=== PATIENT | female | born 1975 | race Caucasian/White ===

== ENCOUNTER 2025-09-10 06:43 | Observation (INO) ==
--- NOTE | 2025-08-10 14:30 | PAT Medication Instructions ---
Medication Instructions Date of Service August 10, 2025 Home Medications Medication Instructions Recorded ondansetron HCl 4 mg tablet 4 mg PO Q6H PRN nausea and 07/14/22 vomiting #12 tabs tizanidine 4 mg tablet 4 mg PO BID PRN muscle spasticity 06/20/25 #60 tabs ondansetron HCl 4 mg tablet 4 mg PO Q6H PRN desvenlafaxine succinate 25 mg tablet,extended release 24 hr (Pristiq) 25 mg PO QAM dextroamphetamine-amphetamine 30 mg tablet (Adderall) 30 mg PO UD magnesium glycinate 100 mg (as glycinate) tablet 400 mg PO HS progesterone micronized 100 mg capsule 100 mg PO HS tizanidine 4 mg tablet 4 mg PO BID PRN Blink Tab 1 tab PO DAILY ascorbic acid (vitamin C) 1,000 mg tablet (Vitamin C) 1,000 mg PO DAILY estradiol 0.05 mg/24 hr semiweekly transdermal patch 1 patch transdermal 2XWK gabapentin 300 mg capsule 300 mg PO TID meloxicam 7.5 mg tablet 7.5 - 15 mg PO UD [id number]-[id number] 1 tab PO DAILY ASK your surgeon for instructions meloxicam 7.5 mg tablet 7.5 - 15 mg PO UD ASK your prescriber and surgeon estradiol 0.05 mg/24 hr semiweekly transdermal patch 1 patch transdermal 2XWK progesterone micronized 100 mg capsule 100 mg PO HS STOP taking 2 weeks before surgery (or as soon as possible if surgery is within 2 weeks) Blink Tab 1 tab PO DAILY [id number] 1 tab PO DAILY DO NOT take the morning of surgery dextroamphetamine-amphetamine 30 mg tablet (Adderall) 30 mg PO UD ascorbic acid (vitamin C) 1,000 mg tablet (Vitamin C) 1,000 mg PO DAILY Take morning of surgery With a small sip of water, OTHERWISE NOTHING TO EAT OR DRINK AFTER MIDNIGHT: ondansetron HCl 4 mg tablet 4 mg PO Q6H PRN(if needed) desvenlafaxine succinate 25 mg tablet,extended release 24 hr (Pristiq) 25 mg PO QAM tizanidine 4 mg tablet 4 mg PO BID PRN(if needed) gabapentin 300 mg capsule 300 mg PO TID Take evening before surgery ondansetron HCl 4 mg tablet 4 mg PO Q6H PRN(if needed) magnesium glycinate 100 mg (as glycinate) tablet 400 mg PO HS tizanidine 4 mg tablet 4 mg PO BID PRN(if needed) gabapentin 300 mg capsule 300 mg PO TID Other Notes If you have any questions please call us at [phone] or [phone] or [phone] or [phone]
--- NOTE | 2025-08-15 13:21 | Anesthesiology Consultation ---
Date of Service August 15, 2025 Assessment & Plan (1) Encounter for pre-operative examination: - check urine test STAT am DOS. Chart Review Chart Review: Acceptable Risk for Surgery and Patient seen in Pre Admission Testing Teaching & Discussion Pre-Anesthesia Teaching/Discussion Notes: Instructed NPO after midnight before surgery, except medications with 15 cc of water. Medication instructions p rovided according to the PAT guidelines. History Surgery Operation Date: 09/11/25 07:30 Proposed Procedures p C5-C6, C6-C7 Artificial Disc Replacement - Gus Nicole MD Height/Weight Height: 5 ft 2 in Weight: 60.1 kg Allergies Allergy/AdvReac Type Severity Reaction Status Date / Time No Known Allergies Allergy Verified 08/10/25 09:49 Medications Home Medications Medication Instructions Recorded Confirmed Last Taken ondansetron HCl 4 mg tablet 4 mg PO Q6H PRN nausea and 07/14/22 08/10/25 Unknown vomiting #12 tabs desvenlafaxine succinate 25 mg 25 mg PO QAM 06/04/25 08/10/25 Unknown tablet,extended release 24 hr (Pristiq) dextroamphetamine-amphetamine 30 30 mg PO UD 06/04/25 08/10/25 Unknown mg tablet (Adderall) magnesium glycinate 100 mg (as 400 mg PO HS 06/04/25 08/10/25 Unknown glycinate) tablet progesterone micronized 100 mg 100 mg PO HS 06/04/25 08/10/25 Unknown capsule tizanidine 4 mg tablet 4 mg PO BID PRN muscle spasticity 06/20/25 08/10/25 Unknown #60 tabs Blink Tab 1 tab PO DAILY 08/10/25 08/10/25 Unknown ascorbic acid (vitamin C) 1,000 mg 1,000 mg PO DAILY 08/10/25 08/10/25 Unknown tablet (Vitamin C) estradiol 0.05 mg/24 hr semiweekly 1 patch transdermal 2XWK 08/10/25 08/10/25 Unknown transdermal patch gabapentin 300 mg capsule 300 mg PO TID 08/10/25 08/10/25 Unknown meloxicam 7.5 mg tablet 7.5 - 15 mg PO UD 08/10/25 08/10/25 Unknown [id number]-[id number]-[id number] 1 tab PO DAILY 08/10/25 08/10/25 Unknown Past Medical History Medical History 4th nerve palsy (04/2025) unknown cause, seen at er at [facility]- resolved in 4 weeks- ADHD Cervical radiculopathy has full rom Degenerative cervical spinal stenosis Migraine hx - none recent Patient denies h/o stroke, seizures, heart attack, heart failure, DM, HTN, blood clots/DVTs or blood transfusions. Exercise / Class Metabolic Activity II 4-5 Yardwork/Stairs/Walk up hill (denies chest discomfort or shortness of breath with one flight of stairs) Past Surgical History Surgical History History of breast augmentation (2015) History of hernia repair As a child- groin S/P ORIF (open reduction internal fixation) fracture (2019) right ankle- later had hardware removed Past Anesthesia History No Hx of Anesthesia Complications and No Family Hx of Anesthesia Complications History of PONV No Hx of Motion Sickness and History of PONV (has had scop patch in the past with benefit without adverse effects) Social History Smoking Status: Never smoker Do You Dip or Chew Tobacco: No Hx Alcohol Use: Yes Alcohol type: wine alcohol intake frequency: 0-2 drinks per day Alcohol Intake Frequency Comment: 2 glasses of wine per day Hx Substance Use: No substance use type: does not use Review of Systems Rare snoring when ill, denies witnessed apneas. Patient denies chest pain, shortness of breath, dyspnea on exertion, reflux, fever, chills, cough, wheezing, or palpitations. Physical Exam Vital Signs Vitals BP 136/92 P 89 TEMP 98.9 SP02 100% on RA RESP 17 Physical Patient resting comfortably in chair in no acute distress, alert and oriented, responding appropriately throughout visit Full cervical extension range of motion without pain TMD 3.5 finger breadths Mallampati Score 2 Dentition: one crown, denies chipped or loose teeth, implants or bridges Lungs: normal respiratory effort. Good air movement, clear throughout to auscultation, no adventitious breath sounds Cardiac: regular rate and rhythm, no murmurs noted Carotid arteries: negative bruit bilat Lab Results Anesthesia Preop Results Results Anesthesia Widget: WBC 5.35 K/ul (4.8-10.8) 08/15/25 Hgb 13.0 g/dl (12.0-16.0) 08/15/25 Hct 37.9 % (37.0-47.0) 08/15/25 Plt 317 K/uL (130-400) 08/15/25 Na 137 mmol/L (136-145) 08/15/25 K 4.1 mmol/L (3.5-5.1) 08/15/25 Cl 104 mmol/L (98-107) 08/15/25 CO2 26 mmol/L (21-32) 08/15/25 BUN 17 mg/dl (6-23) 08/15/25 Creat 0.57 mg/dl (0.6-1.2) L 08/15/25 Glucose Level 90 mg/dl (70-99(Fasting)) 08/15/25 PT 10.6 Seconds (9.0-12.0) 08/15/25 PTT 25 Seconds (21-31) 08/15/25 INR 1.0 (0.9-1.1) 08/15/25 HA1c 5.1 % (4.5-5.6) 08/15/25 Blood Type A Positive 08/15/25 Antibody Screen NEGATIVE 08/15/25 Testing Electrocardiogram Date: 08/15/25 NSR, rate 80 bpm Chest X-Ray Date: 05/14/25 *1 view* No acute infiltrates Cervical Spine Date: 07/04/25 MRI Worsening multilevel cervical spondylosis/spondylolisthesis with up to moderate spinal canal stenosis and severe neural foramen stenosis Other Testing Brain MRI 05/14/25 No acute CVA No white matter changes No space-occupying lesions No enhancement abnormalities Head and neck CTA 05/14/25 No acute intracranial hemorrhage or mass effect Patent havasupai of [place]. No proximal large vessel occlusion identified No proximal internal carotid artery stenosis
[2025-09-10] MEDS ORDERED: DEXAMETHASONE SOD INJ 4 MG/ML VIAL ONE (07:16)
[2025-09-10] MEDS ORDERED: ROCURONIUM BROMIDE 10 MG/ML 5 ML VIAL IV ONE ×2 (07:16→09:04)
[2025-09-10] MEDS ORDERED: LIDOCAINE 2% 2 ML VIAL/AMP(20MG/ML) INFIL ONE (07:16)
[2025-09-10] MEDS ORDERED: PROPOFOL IV EMULSION 10 MG/ML 20 ML VIAL IV ONE (07:16)
[2025-09-10] MEDS ORDERED: ONDANSETRON INJ 2 MG/ML 2 ML VIAL ONE (07:16)
[2025-09-10] MEDS: LR 60ML/HR IV SCH (07:16)
[2025-09-10] MEDS ORDERED: MIDAZOLAM HCL 1 MG/ML 2ML VIAL ONE (07:16)
[2025-09-10] MEDS: ACETAMINOPHEN 500 MG TAB PO SCH (07:18)
[2025-09-10] MEDS: LR 15ML/HR IV SCH (07:18)
[2025-09-10] MEDS ORDERED: ATROPINE SULFATE 0.1 MG/ML 10ML SYR IV PRN (07:32)
[2025-09-10] MEDS ORDERED: ONDANSETRON INJ 2 MG/ML 2 ML VIAL IV PRN (07:32)
--- NOTE | 2025-09-10 07:34 | History & Physical Bridge Note ---
Date of Service September 10, 2025 History & Physical Bridge Note I have examined the patient, reviewed the History & Physical and in the interval since the performance of the History & Physical I have noted the following changes of clinical significance: no changes noted
[2025-09-10] MEDS ORDERED: SCOPOLAMINE 1 MG/72 HR TDSY PATCH TD ONE (07:43)
--- NOTE | 2025-09-10 07:44 | History & Physical Report ---
Date of Service September 10, 2025 History of Present Illness Chief Complaint: cervical radiculopathy Primary Care Provider: Jackelyn Spencer Patient returns status post a CT scan and also MRI of her cervical spine, she has continued symptoms in both arms, in the shoulder but then down the arms the ulnar 3 digits on the right and ulnar 2 digits on the left, but also some pain in the parascapular area shoulder regions. 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 Exam reveals the patient to have perhaps limited positive Tinel's of both wrist and both elbows but not pronounced. No other focal motor weakness. 4 views of the cervical spine taken for today's office AP lateral flexion- extension views these reveal the patient to have the degenerative changes seen pronounced at C5-6 and C6-7, but motion appropriate for the levels is still present. There is 1 mm of anterolisthesis of C4 on C5, this maintains proper height in comparison to the C5-6 and C6-7 levels, this perhaps changes 1 mm at most. Review of MRI images of the cervical spine from [facility] from July 04, 2025, this is my separate interpretation, this reveals the degenerative changes at C5-6 and C6-7 with loss of height broad-based disc and osteophyte formation, causing moderate canal stenosis and C6-7 worse on the left, and continued what I would consider severe foraminal stenosis bilaterally but certainly worse on the left, similar at C6-7 but with less canal stenosis, C4-5 has some mild disc bulge, there is no significant central stenosis, there is some developing foraminal stenosis more so on the left side with facet changes bilaterally. CT scan images of the cervical spine from [facility] from July 04, 2025, is my separate interpretation, this reveals similar findings as noted above on the MRI, some ossification of the posterior aspect of the disc base. Facet changes seen more so at C4-5. Impression: Cervical degenerative changes as noted above with combination of neck pain but primarily arm symptomatology. Plan: Today at this time I reviewed the radiographs, CT scan and MRI images with the patient and went over these in detail. I related to her that I think all 3 levels could be causing some of her symptoms but relative to disc arthroplasty the 2 levels I would recommend addressing would be the C5-6 and C6-7 levels which I think are more involved with the central and/or foraminal stenosis. I did relate that C4-5 could also be causing some issues, my thoughts are that we would be limited in terms of our ability to do a three-level artificial disc replacement, so our goal will be to address the C5-6 and C6-7 levels with anterior decompression and disc arthroplasty. We would then see how the patient does relative to her activities and complaints afterwards and only consider intervention to C4-5 level if needed at some point in the future noting the findings as seen on the imaging studies. Reviewed with the hospital postoperative course and limitations, potential risk complications associated with type of procedure, patient was in agreement with this plan and will see her in the postoperative period with radiographs. Allergies Allergy/AdvReac Type Severity Reaction Status Date / Time No Known Allergies Allergy Verified 09/10/25 06:59 Home Medications Medication Instructions Recorded Confirmed Type ondansetron HCl 4 mg tablet 4 mg PO Q6H PRN nausea and 07/14/22 09/10/25 Rx vomiting #12 tabs desvenlafaxine succinate 25 mg 25 mg PO QAM 06/04/25 09/10/25 History tablet,extended release 24 hr (Pristiq) dextroamphetamine-amphetamine 30 30 mg PO UD 06/04/25 09/10/25 History mg tablet (Adderall) magnesium glycinate 100 mg (as 400 mg PO HS 06/04/25 09/10/25 History glycinate) tablet progesterone micronized 100 mg 100 mg PO HS 06/04/25 09/10/25 History capsule Blink Tab 1 tab PO DAILY 08/10/25 09/10/25 History ascorbic acid (vitamin C) 1,000 mg 1,000 mg PO DAILY 08/10/25 09/10/25 History tablet (Vitamin C) estradiol 0.05 mg/24 hr semiweekly 1 patch transdermal 2XWK 08/10/25 09/10/25 History transdermal patch gabapentin 300 mg capsule 300 mg PO TID 08/10/25 09/10/25 History meloxicam 7.5 mg tablet 7.5 - 15 mg PO UD 08/10/25 09/10/25 History juzji-0-jow-csd-iyh-bvan-D3-K2 1 tab PO DAILY 08/10/25 09/10/25 History tizanidine 4 mg tablet 4 mg PO BID PRN muscle spasticity 09/05/25 09/10/25 Rx #60 tabs Past Med/Surg History Problem List Degenerative cervical spinal stenosis Cervical radiculopathy Painful orthopaedic hardware Encounter for pre-operative examination Medical History 4th nerve palsy (04/2025) unknown cause, seen at er at [facility]- resolved in 4 weeks- ADHD Cervical radiculopathy has full rom Degenerative cervical spinal stenosis Migraine hx - none recent Surgical History History of breast augmentation (2015) History of hernia repair As a child- groin S/P ORIF (open reduction internal fixation) fracture (2019) right ankle- later had hardware removed Social History Smoking Status: Never smoker Second Hand Exposure: No; Do You Dip or Chew Tobacco: No; Tobacco Cessation Education Requested by Patient: No Hx Alcohol Use: Yes Alcohol type: wine Hx Substance Use: No Preferred Language: Citizen Of [place] Communication Ability: Effective Medicine Teacher Required: No Beliefs That Will Affect Care: None Current Living Situation: Family Other Information That Helps Us Care for You: No Feels Safe at Home: Yes Safety Concerns: Feels Safe At This Time Assistive Devices: Glasses Results & Data Results & Data Vital Signs (Past 12 Hours) Vital Signs Temp Pulse Resp BP Pulse Ox O2 Del Method 09/10/25 07:00 36.6 C 79 20 141/99 H 99 Room Air
--- NOTE | 2025-09-10 08:03 | History & Physical Report ---
Date of Service September 10, 2025 History of Present Illness Chief Complaint: cervical radiculopathy Primary Care Provider: January Spencer Patient returns for follow-up, she was last seen in December of this year relative to a combination of some cervical axial symptoms with primarily right arm symptomatology with numbness and tingling, evaluation with MRI and radiographs reveal degenerative changes primarily at C5-6 and C6-7 associated with the stenosis. Of note is on 721 she had undergo evaluation relative to developing combination of symptoms with visual abnormalities, she underwent extensive workup in [facility], no specific new findings were noted. She has the same complaints as before in my earlier note. No new findings and examination, some limited axial symptoms with range of motion. 4 views of the cervical spine AP lateral flexion-extension views taken August 09, 2024 office reveal on AP view the patient have relatively straight spine there is some limited evidence of some facet arthropathy, on lateral view normal lordosis is maintained, there are some degenerative changes at C5-6 and C6-7, no instability seen on flexion-extension. Review of MRI images of the cervical spine from August 22, 2024 from [facility], this reveals the patient's main findings to be at C5-6 and C6-7, more significant central stenosis at C5-6 slightly less so at C6-7, there is severe foraminal stenosis I think at C5-6 bilaterally and slightly less so at C6-7. C4-5 has a slight central disc bulge but no significant central or foraminal stenosis, may be a minimal amount of anterolisthesis. Impression: Cervical stenosis and radiculopathy originating from C5-6 and C6-7 with more right arm symptoms though intermittent left arm symptoms are present. Plan: At this time expressed to the patient that relative to any preoperative planning we will obtain a new cervical MRI as her current one is 10 months old and I wanted to see if there has been any changes relative to some of the more recent events. This will include both cervical MRI and CT scan, when she returns we will obtain new flexion-extension views of the cervical spine. She was in agreement with this plan, she notes she will get the studies in [place] and then bring them with her on a disk. Allergies Allergy/AdvReac Type Severity Reaction Status Date / Time No Known Allergies Allergy Verified 09/10/25 06:59 Home Medications Medication Instructions Recorded Confirmed Type ondansetron HCl 4 mg tablet 4 mg PO Q6H PRN nausea and 07/14/22 09/10/25 Rx vomiting #12 tabs desvenlafaxine succinate 25 mg 25 mg PO QAM 06/04/25 09/10/25 History tablet,extended release 24 hr (Pristiq) dextroamphetamine-amphetamine 30 30 mg PO UD 06/04/25 09/10/25 History mg tablet (Adderall) magnesium glycinate 100 mg (as 400 mg PO HS 06/04/25 09/10/25 History glycinate) tablet progesterone micronized 100 mg 100 mg PO HS 06/04/25 09/10/25 History capsule Blink Tab 1 tab PO DAILY 08/10/25 09/10/25 History ascorbic acid (vitamin C) 1,000 mg 1,000 mg PO DAILY 08/10/25 09/10/25 History tablet (Vitamin C) estradiol 0.05 mg/24 hr semiweekly 1 patch transdermal 2XWK 08/10/25 09/10/25 History transdermal patch gabapentin 300 mg capsule 300 mg PO TID 08/10/25 09/10/25 History meloxicam 7.5 mg tablet 7.5 - 15 mg PO UD 08/10/25 09/10/25 History [id number]-fgq-klc-htoa-[id number] 1 tab PO DAILY 08/10/25 09/10/25 History tizanidine 4 mg tablet 4 mg PO BID PRN muscle spasticity 09/05/25 09/10/25 Rx #60 tabs Past Med/Surg History Problem List Degenerative cervical spinal stenosis Cervical radiculopathy Painful orthopaedic hardware Encounter for pre-operative examination Medical History 4th nerve palsy (04/2025) unknown cause, seen at er at [facility]- resolved in 4 weeks- ADHD Cervical radiculopathy has full rom Degenerative cervical spinal stenosis Migraine hx - none recent Surgical History History of breast augmentation (2015) History of hernia repair As a child- groin S/P ORIF (open reduction internal fixation) fracture (2019) right ankle- later had hardware removed Social History Smoking Status: Never smoker Second Hand Exposure: No; Do You Dip or Chew Tobacco: No; Tobacco Cessation Education Requested by Patient: No Hx Alcohol Use: Yes Alcohol type: wine Hx Substance Use: No Preferred Language: Italian Communication Ability: Effective Planner Internship Required: No Beliefs That Will Affect Care: None Current Living Situation: Family Other Information That Helps Us Care for You: No Feels Safe at Home: Yes Safety Concerns: Feels Safe At This Time Assistive Devices: Glasses Results & Data Results & Data Vital Signs (Past 12 Hours) Vital Signs Temp Pulse Resp BP Pulse Ox O2 Del Method 09/10/25 07:00 36.6 C 79 20 141/99 H 99 Room Air
[2025-09-10] MEDS ORDERED: PHENYLEPHRINE 100MCG/ML 5ML SYR ONE (09:38)
[2025-09-10] MEDS ORDERED: HYDROmorphone INJ 2 MG/ML SYR/VIAL ONE (09:39)
[2025-09-10] MEDS: VANCOMYCIN HCL 1000MG/20ML VIAL ONE (10:24)
[2025-09-10] MEDS ORDERED: ePHEDrine sulfate 50 MG/5 ML SYR ONE (10:24)
[2025-09-10] MEDS: FLOSEAL HEMOSTATIC MATRIX 5ML TOP ONE (11:37)
[2025-09-10] MEDS: GELATIN SPONGE 12-7MM ONE (11:37)
[2025-09-10] MEDS: THROMBIN 5000 UNITS KIT ONE (11:37)
[2025-09-10] MEDS ORDERED: SUGAMMADEX SODIUM 200 MG/2 ML VIAL IV ONE (11:40)
--- NOTE | 2025-09-10 11:58 | Post Operative Brief Note ---
PG Immediate Post Op with CF Date of Surgery September 10, 2025 Pre & Post Diagnosis Operation Date: 09/10/25 08:10 Pre-Op Diagnosis: Cervical Radiculopathy Post-Op Diagnosis: Cervical Radiculopathy I identified the patient and participated in the time-out.: Yes Procedure Operation Date: 09/10/25 08:10 Actual Procedures p C5-C6, C6-C7 Artificial Disc Replacement(Not Applicable) - Gus Nicole MD Surgeon Gus Nicole MD Beck Operator none Estimated Blood Loss 5 Findings Consistent with Post-Op Diagnosis Specimens Specimen Description: No specimen per surgeon Drains Gustafson Catheter (Inserted prior to procedure start by Shar Feng RN; 10cc in balloon; leg strap applied)
[2025-09-10] MEDS ORDERED: FAMOTIDINE 20 MG TAB PO PRN (11:59)
[2025-09-10] MEDS ORDERED: LORazepam 0.5 MG TAB PO PRN (11:59)
[2025-09-10] MEDS ORDERED: ALUMINUM/MAGNESIUM SUSP 30 ML UDC PO PRN (11:59)
[2025-09-10] MEDS ORDERED: ACETAMINOPHEN 500 MG TAB PO PRN (11:59)
[2025-09-10] MEDS ORDERED: SOD PHOSPHATE/SOD BIPHOSPHATE ENEMA 132 ML BTL PR PRN (11:59)
[2025-09-10] MEDS ORDERED: diphenhydrAMINE Capsule 25 MG CAP PO PRN (11:59)
[2025-09-10] MEDS ORDERED: NALOXONE HCL 0.4 MG/1 ML VIAL/CARP IV PRN (11:59)
[2025-09-10] MEDS ORDERED: MAGNESIUM HYDROXIDE SUSP 30 ML UDC PO PRN (11:59)
[2025-09-10] MEDS ORDERED: DO NOT ADMINISTER PNEUMOCOCCAL VACCINE PRN (11:59)
[2025-09-10] MEDS ORDERED: ACETAMINOPHEN 1,000 MG/100 ML VIAL IV PRN (11:59)
[2025-09-10] MEDS ORDERED: PROMETHAZINE 12.5 MG/50.5 ML BAG IV PRN (11:59)
[2025-09-10] MEDS ORDERED: LORazepam Inj 0.5 MG in SYRINGE 0.25 ML IV PRN (11:59)
[2025-09-10] MEDS ORDERED: METOCLOPRAMIDE HCL INJ 5 MG/ML 2 ML VIAL IV PRN (11:59)
[2025-09-10] MEDS ORDERED: RACEPINEPHRINE 2.25% NEBU SOLN 0.5 ML VIAL INH PRN (11:59)
[2025-09-10] MEDS ORDERED: DO NOT ADMINISTER FLU VACCINE PRN (11:59)
[2025-09-10] MEDS ORDERED: dexAMETHasone 8 MG in SYRINGE 0 ML IV PRN (11:59)
--- NOTE | 2025-09-10 12:53 | Fluoroscopy Report ---
FL cervical 2-3V CLINICAL HISTORY: C5-C6, C6-C7 ARTIFICIAL DISC REPLACEMENT COMPARISON STUDY: None FLUOROSCOPY TIME: 151 seconds FLUOROSCOPY IMAGES: 17 EXPOSURE DOSE: 33 mGy FINDINGS: Fluoroscopy was provided for cervical spine surgery. IMPRESSION: Intraoperative fluoroscopy. ACT 112: Negative or not required by law. Electronically signed by: Sergio Cotton M.D. 09/10/2025 12:51 PM
--- NOTE | 2025-09-10 13:06 | Anesthesiology Progress Note ---
Date of Service September 10, 2025 Anesthesia Post Procedure Vital Signs Vital Signs: Temp Pulse Pulse Resp BP BP Pulse Ox 09/10/25 12:55 36.7 C 86 16 124/84 96 09/10/25 12:45 81 12 127/77 98 09/10/25 12:35 92 H 12 134/83 97 09/10/25 12:25 89 18 117/77 100 09/10/25 12:15 85 12 127/80 98 09/10/25 12:05 91 H 17 131/84 98 09/10/25 11:57 36.8 C 91 H 12 123/78 98 09/10/25 07:00 36.6 C 79 20 141/99 H 99 O2 Del Method O2 Flow Rate 09/10/25 12:55 Nasal Cannula 2 09/10/25 12:45 Nasal Cannula 2 09/10/25 12:35 Nasal Cannula 2 09/10/25 12:25 Nasal Cannula 2 09/10/25 12:15 Oxymask 6 09/10/25 12:05 Oxymask 6 09/10/25 11:57 Oxymask 6 09/10/25 07:00 Room Air Pain Intensity Neck: Pain Intensity: 5 Transfer of Care Handoff Completed per policy Notes Mental Status: alert / awake / arousable Patient Amnestic to Procedure: Yes Nausea / Vomiting: adequately controlled Pain: adequately controlled Airway Patency, RR, SpO2: stable & adequate BP & HR: stable & adequate Hydration State: stable & adequate Anesthetic Complications: no major complications apparent
[2025-09-10] MEDS: HYDROmorphone INJ 1 MG/ML SYRINGE IV PRN (13:26)
[2025-09-10 13:31] LABS: Anion Gap 7.0 (3-11); Blood Urea Nitrogen 11.0 mg/dl (6-23); Calcium 8.4 mg/dl (8.6-10.3); Carbon Dioxide 23.0 mmol/L (21-32); Chloride 108.0 mmol/L (98-107); Creatinine Clr Calc Pharmacy 103.5 ml/min; Glucose 164.0 mg/dl (70-99(Fasting)); Potassium 3.8 mmol/L (3.5-5.1); Sodium 138.0 mmol/L (136-145)
[2025-09-10] MEDS: GABAPENTIN 300 MG CAP PO SCH (14:12)
[2025-09-10] MEDS: ONDANSETRON 4 MG OD TAB PO PRN (20:08)
[2025-09-10] MEDS: DOCUSATE SODIUM/SENNA 50/8.6MG TAB PO SCH (20:09)
[2025-09-10] MEDS: HYDROmorphone INJ 0.5 MG/0.5 ML SYR IV PRN (22:07)
[2025-09-11] MEDS: POLYETHYLENE (MIRALAX) 17 GM PACK PO SCH (06:20)
--- NOTE | 2025-09-11 09:20 | Orthopedic Progress Note ---
Date of Service September 11, 2025 Assessment & Plan (1) Degenerative cervical spinal stenosis: * Continue Current Treatment * Disposition: home * Daily treatment: Physical Therapy/ Occupational Therapy per protocol * Weight bearing status: tolerated * Soft collar for comfort only * Continue to monitor for ABLA * Pain control * Office/hospital f/u 2 weeks for progress check and staple/suture removal * Plan for discharge today pending PT/OT clearance Subjective .Active Problems: S/p C5-7 disc replacement POD 1 49 y/o female s/p C5-7 disc replacement. Doing well overall, pain managed and improved function. Notes b/l arm pain, burning symptoms consistent with her pre- op baseline. Denies fever/chills, chest pain/SOB, nausea/vomiting. Otherwise no complaints. Review of Systems All systems reviewed & are unremarkable except as noted in HPI & below. Physical Exam . * General: Alert and oriented, no acute distress * Constitutional: well-developed, well-nourished. * Respiratory: Normal respiratory effort, no distress * Gastrointestinal: No tenderness to palpation, no rigidity or guarding. * Skin: No rash or lesion. * Neurologic: Grossly normal * Musculoskeletal: Surgical dressing CDI. Cervical spine region without obvious deformity or overlying skin changes. Minimal tenderness of surgical region, otherwise no tenderness b/l UE. Neck ROM with minimal pain. AROM b/l shoulder flexion, elbow flexion/extension, wrist flexion/extension intact. Sensation intact radial/median/ulnar nerve distributions. Brisk capillary refill. Results & Data Results & Data Laboratory Results . Diagnostic Findings . PG Care Time/CCT Total # of Minutes Spent Total Time Spent with Patient: Total time spent is greater than 50% in coordination of care (as documented) at patient's floor/unit and/or counseling patient: Coding Level of Care Code 10947 Post Operative Follow-Up Diagnoses Degenerative cervical spinal stenosis M48.02
--- NOTE | 2025-09-11 09:21 | Orthopedic Progress Note ---
Date of Service September 11, 2025 Subjective Patient seen and examined, notes some limited axial symptoms and swallowing issues but overall main complaint had to do is just nausea. Dressing dry, intact. Plan: Patient doing well, will do physical therapy this morning and if no issues will discharge with some oxycodone follow-up in 2 weeks. She has some Zofran at home for any nausea, and also recommended tomorrow starting with some ibuprofen if needed. Review of Systems All systems reviewed & are unremarkable except as noted in HPI & below. Physical Exam . Results & Data Results & Data Laboratory Results . Diagnostic Findings . PG Care Time/CCT Total # of Minutes Spent Total Time Spent with Patient: Total time spent is greater than 50% in coordination of care (as documented) at patient's floor/unit and/or counseling patient: Coding Level of Care Code 60790 Post Operative Follow-Up
--- NOTE | 2025-09-11 09:38 | Operative Report ---
PG Post Operative Report Pre & Post Diagnosis Operation Date: 09/10/25 08:10 Pre-Op Diagnosis: Cervical Radiculopathy Post-Op Diagnosis: Cervical Radiculopathy I identified the patient and participated in the time-out.: Yes Procedure Operation Date: 09/10/25 08:10 Actual Procedures p C5-C6, C6-C7 Artificial Disc Replacement(Not Applicable) - Gus Nicole MD Surgeon Gus Nicole MD Senior Air Director none Estimated Blood Loss 5 Findings Consistent with Post-Op Diagnosis Specimens none Description of Procedure 1. C5-6 decompression, disc arthroplasty Mobi-C 17 x 17 x 4.5 mm. (19390) 2. C6-7 decompression, disc arthroplasty Mobi-C 17 x 17 x 4.5 mm. ([id number]) Patient taken to the operating room and after adequate anesthesia was carefully positioned supine on the OSI flattop table. Preprepped was performed, followed by then positioning the patient in routine fashion for anterior cervical approach to the C5-6 and C6-7 levels. After doing so, I moved ahead with imaging with fluoroscopy to judith the approximate location for the incision followed by prep and drape. Transverse incision was made in the left side of the neck over the sternocleidomastoid, from here I then carefully advanced down to the anterior aspect of the cervical spine without issue, this was confirmed with the FluoroScan. Mobilization of tissues in the region was performed followed by then insertion of distractor pins at C7 and C6 under fluoroscopic control. Operative microscope was brought in, I then began the procedure after setting the retractors with anterior annulotomy followed by thorough discectomy removal of cartilage from the endplates. Posteriorly I utilized a combination of a high-speed bur followed by curettes and Kerrison punches to perform the decompression across the interspace at this level. Trials were then inserted I selected the sizes as noted. The disc placement was then obtained, I tapped this into position with excellent position on fluoroscopic control with minor adjustments made. The distractor pin at C7 was removed, bone wax was applied, I then applied this to the C5 level in a similar fashion under fluoroscopic control. Retractors were reset, I then performed a similar annulotomy followed by thorough discectomy and decompression across the interspace. The disc replacement was then obtained and inserted in the similar fashion without issues, excellent position on AP and lateral views. Operative site was evaluated no issues noted, vancomycin powder was placed, the operative site was closed with using interrupted 3-0 Vicryl sutures followed by benzoin and Steri- Strips, the patient tolerated procedure well was taken recovery room in satisfactory condition. I attest to the content of the Intraoperative Record and any orders documented therein. Any exceptions are noted below.
[2025-09-11] MEDS: ONDANSETRON INJ 2 MG/ML 2 ML VIAL IV PRN (09:48)
== END 2025-09-11 13:03 | disposition home or self-care (01) ==
LOC: 3E 06:43 → ASU 06:43